=== PATIENT | female | born 1980 | race Two or more races ===

== ENCOUNTER 2019-08-12 13:05 | Observation (INO) | payer MEDICAID ==
[2019-09-02] MEDS ORDERED: SUCR1TAB22 OR (11:14)
== END 2019-08-12 14:00 | disposition home or self-care (01) | DRG 566 ==
LOC: LDRP 13:05
PROVIDERS: ADMIT Obstetrics & Gynecology; ATTEND Obstetrics & Gynecology
DX: O36.8130 Decreased fetal movements, third trimester, not applicable or unspecified (principal); Z3A.30 30 weeks gestation of pregnancy
CPT/HCPCS: 59025; 81002; G0378

== ENCOUNTER 2019-08-19 10:18 | Observation (INO) | payer MEDICAID ==
[2019-08-19] MEDS ORDERED: FOLI1TAB6 PO (11:09)
[2019-08-19] MEDS ORDERED: PREN-96 PO (11:09)
== END 2019-08-19 11:36 | disposition home or self-care (01) | DRG 566 ==
LOC: LDRP 10:18
PROVIDERS: ADMIT Specialist; ATTEND Specialist
DX: O41.03X0 Oligohydramnios, third trimester, not applicable or unspecified (principal); Z3A.31 31 weeks gestation of pregnancy
CPT/HCPCS: 76818; 81002; G0378

== ENCOUNTER 2019-08-26 11:25 | Observation (INO) | payer MEDICAID ==
[~2019-08-26 11:25] MED LIST: FOLI1TAB6 PO; PREN-96 PO
== END 2019-08-26 13:25 | disposition home or self-care (01) | DRG 566 ==
LOC: LDRP 11:25
PROVIDERS: ADMIT Specialist; ATTEND Specialist
DX: O41.03X0 Oligohydramnios, third trimester, not applicable or unspecified (principal); O42.913 Preterm premature rupture of membranes, unspecified as to length of time between rupture and onset of labor, third trimester; Z3A.32 32 weeks gestation of pregnancy
CPT/HCPCS: 59025; 76815; 81002; G0378

== ENCOUNTER 2019-09-02 10:11 | Observation (INO) | payer MEDICAID ==
[2019-09-02] MEDS ORDERED: SUCR1TAB38 OR (11:14)
== END 2019-09-02 11:48 | disposition home or self-care (01) | DRG 566 ==
LOC: LDRP 10:11
PROVIDERS: ADMIT Obstetrics & Gynecology; ATTEND Obstetrics & Gynecology
DX: O42.913 Preterm premature rupture of membranes, unspecified as to length of time between rupture and onset of labor, third trimester (principal); Z3A.33 33 weeks gestation of pregnancy
CPT/HCPCS: 59025; 76818; 81002; G0378

== ENCOUNTER 2019-09-08 10:15 | Observation (INO) | payer MEDICAID ==
[~2019-09-08 10:15] MED LIST changes: +SUCR1TAB38 OR
== END 2019-09-08 12:40 | disposition home or self-care (01) | DRG 566 ==
LOC: LDRP 10:15
PROVIDERS: ADMIT Specialist; ATTEND Specialist
DX: O41.03X0 Oligohydramnios, third trimester, not applicable or unspecified (principal); O62.9 Abnormality of forces of labor, unspecified; Z3A.34 34 weeks gestation of pregnancy
CPT/HCPCS: 59025; 76818; 81002; G0378

== ENCOUNTER 2019-09-15 10:28 | Observation (INO) | payer MEDICAID | END 2019-09-15 11:25 | disposition home or self-care (01) | DRG 566 | LOC: LDRP 10:28 | PROVIDERS: ADMIT Specialist; ATTEND Specialist | DX: O42.913 Preterm premature rupture of membranes, unspecified as to length of time between rupture and onset of labor, third trimester (principal); O62.9 Abnormality of forces of labor, unspecified; Z3A.35 35 weeks gestation of pregnancy | CPT/HCPCS: 59025; 76818; 81002; G0378 ==

== ENCOUNTER 2019-09-23 09:47 | Observation (INO) | payer MEDICAID | END 2019-09-23 10:46 | disposition home or self-care (01) | DRG 861 | LOC: LDRP 09:47 | PROVIDERS: ADMIT Obstetrics & Gynecology; ATTEND Obstetrics & Gynecology | DX: Z34.83 Encounter for supervision of other normal pregnancy, third trimester (principal); Z3A.36 36 weeks gestation of pregnancy | CPT/HCPCS: 59025; 76818; 81002; G0378 ==

== ENCOUNTER 2019-09-28 13:50 | Observation (INO) | payer MEDICAID ==
[~2019-09-28] VITALS: Ht 170.2 cm; Wt 85.3 kg
[2019-09-28] MEDS ORDERED: LACTATED RINGER'S 1,000 ML IV ONE ×2 (16:00→18:00)
[2019-09-28] MEDS ORDERED: TERBUTALINE SULFATE 1 MG/ML 1ML VIAL SC SCH (18:00)
== END 2019-09-28 19:57 | disposition home or self-care (01) | DRG 566 ==
LOC: LDRP 13:50
PROVIDERS: ADMIT Specialist; ATTEND Specialist
DX: O99.89 Other specified diseases and conditions complicating pregnancy, childbirth and the puerperium (principal); H53.8 Other visual disturbances; O09.523 Supervision of elderly multigravida, third trimester; Z3A.36 36 weeks gestation of pregnancy
CPT/HCPCS: 59025; 76818; 81002; 96372; G0378; J3105; 96365; 96366

== ENCOUNTER 2019-09-30 09:28 | Observation (INO) | payer MEDICAID | END 2019-09-30 11:08 | disposition home or self-care (01) | DRG 566 | LOC: LDRP 09:28 | PROVIDERS: ADMIT Specialist; ATTEND Specialist | DX: O41.03X0 Oligohydramnios, third trimester, not applicable or unspecified (principal); O09.523 Supervision of elderly multigravida, third trimester; Z3A.37 37 weeks gestation of pregnancy | CPT/HCPCS: 59025; 76818; 81002; G0378 ==

== ENCOUNTER 2019-10-03 03:57 | Inpatient (IN) | payer MEDICAID ==
[~2019-10-03] VITALS: Ht 170.2 cm; Wt 85.7 kg
[2019-10-03] MEDS ORDERED: LACTATED RINGER'S 1,000 ML IV SCH (04:54)
[2019-10-03] MEDS ORDERED: LACT. RINGERS/OXYTOCIN 20UNITS 1,000 ML IV SCH (04:54)
[2019-10-03] MEDS ORDERED: PENICILLIN G POT 5MIL/D5 50ML 50 ML IV ONE ×2 (05:00→05:03)
[2019-10-03] MEDS ORDERED: PHISODERM TOP SOLN 240ML BTL TOP PRN (05:00)
[2019-10-03] MEDS ORDERED: WITCH HAZEL-GLYCERIN PAD TOP PRN (05:00)
[2019-10-03] MEDS ORDERED: METHYLERGONOVINE MALEATE 0.2 MG/ML AMP IM PRN (05:00)
[2019-10-03] MEDS ORDERED: LIDOCAINE 2%HCL (LOCAL ANESTH.) INJ 20ML MDV ID ONE (05:00)
[2019-10-03] MEDS ORDERED: DERMOPLAST 60ML BOTTLE TOP PRN (05:00)
[2019-10-03] MEDS: PENICILLIN G POTASSIUM 2,500,000 UNITS in D5W 5% 50 ML IV SCH ×2 (05:12→10:22)
[2019-10-03 05:49] LABS: Albumin 2.6 g/dL (3.4-5.0); BUN/Creatinine Ratio 14.5; Calcium 8.7 mg/dL (8.5-10.1); Potassium 3.7 mmol/L (3.5-5.1)
[2019-10-03 05:52] LABS: Bilirubin, Total 0.3 mg/dL (0.2-1.0); Total Protein 7.2 g/dL (6.4-8.2)
[2019-10-03 05:53] LABS: INR 0.92 (0.9-1.15); Partial Thromboplastin Time 28.4 sec (23.64-32.05)
[2019-10-03 06:11] LABS: Urine Amorphous Crystal FEW /hpf (None Seen); Urine Bacteria FEW /hpf (None Seen); Urine Blood 3+ /uL (Negative); Urine Hyaline Cast FEW /lpf (0 - 2); Urine Specific Gravity 1.007 (1.001-1.035); Urine WBC 89 /hpf (0 - 5); Urine WBC Clumps PRESENT /hpf (None Seen)
[2019-10-03 06:16] LABS: Amphetamine Screen, Urine NEGATIVE (NEGATIVE); Barbiturate Scree,Urine NEGATIVE (NEGATIVE); Benzodiazephine Screen, Urine NEGATIVE (NEGATIVE); Cannabinoid Screen, Urine NEGATIVE (NEGATIVE); Cocaine Screen, Urine NEGATIVE (NEGATIVE); Opiate Scree,Urine NEGATIVE (NEGATIVE); Phencyclidine Screen, Urine NEGATIVE (NEGATIVE)
[2019-10-03 06:27] LABS: Basophils # (auto) 0.1 10 ^3/uL (0-0.2); Basophils % (auto) 0.6 % (0.0-2.0); Eosinophils # (auto) 0 10 ^3/uL (0-0.8); Eosinophils % (auto) 0.4 % (0.0-7.0); Hematocrit 39.4 % (36.0-46.0); Hemoglobin 13.5 g/dL (12.2-16.2); Mean Corpuscular Hemoglobin 30.2 pg (28.0-32.0); Mean Corpuscular Hgb Conc. 34.1 g/dL (32.0-36.0); Mean Corpuscular Volume 88.4 fL (80.0-100.0); Monocytes # (auto) 0.7 10 ^3/uL (0-1.3); Monocytes % (auto) 6.8 % (0.0-12.0); Neutrophils # (auto) 7.2 10 ^3/uL (1.6-8.6); Neutrophils % (auto) 72.2 % (37.0-80.0); Platelet Count (auto) 135 10^3/uL (140-450); Red Blood Cells 4.46 10^6/uL (4.0-5.20); Red Cell Distribution Width 13.5 % (11.8-14.3); White Blood Cell 9.9 10^3/uL (4.4-10.8)
[2019-10-03 06:32] LABS: Alcohol, Urine < 3.0 mg/dL (0-10)
--- NOTE | 2019-10-03 13:00 | NUR ---
Teaching: Reviewed information in [employer] booklet with patient. Discussed benefits of and risks associated with not . Discussed different positions, proper latch, feeding cues, and baby-led . Provided information of medication side effects related to . All questions and concerns addressed at this time. Patient verbalized understanding of information.
--- NOTE | 2019-10-03 14:45 | NUR ---
Ambulation: Patient OOB with standby assistance by RN. Patient ambulated to bathroom with steady gait. Patient able to void without difficulty. [facility] teaching provided with returned demonstration by patient. Clean gown provided and bed linen changed. Patient ambulated back to bed with steady gait and no distress noted.
[2019-10-03] MEDS: IBUPROFEN 600 MG TAB PO PRN ×2 (14:59→22:49)
[2019-10-03 15:30] VITALS: BP 112/61
[2019-10-03 19:30] VITALS: BP 108/57
[2019-10-03 23:00] VITALS: BP 94/59
--- NOTE | 2019-10-04 02:47 | NUR ---
IV removal IV DC'd with sterile technique, catheter fully intact. Pressure dressing applied to site. Patient tolerated procedure well.
[2019-10-04 02:48] VITALS: BP 109/61
[2019-10-04] MEDS: IBUPROFEN 600 MG TAB PO PRN (05:35)
[2019-10-04 07:26] VITALS: BP 110/63
[2019-10-04 11:00] VITALS: BP 105/67
--- NOTE | 2019-10-04 12:10 | NUR ---
Discharge: Patient taken to vehicle ambulating with all personal belongings, accompanied by staff and family member. No distress noted at time of departure, no adverse changes in status since initial assessment.
--- NOTE | 2019-10-04 14:31 | NUR ---
Discharge: Discharge instructions given as ordered. Pt encouraged to follow up with [facility] as instructed. All questions and concerns addressed. Patient verbalized understanding. Medication reconciliation completed and copy given to patient. All required/requested vaccines given and copies of vaccinations given to patient. Patient encouraged to prepare to depart unit.
[2019-10-04 15:00] VITALS: BP 115/64
== END 2019-10-04 15:25 | disposition home or self-care (01) | DRG 560 ==
LOC: LDRP 03:57 → OBSVTOIN 05:00 → LDRP 05:01
PROVIDERS: ADMIT Specialist; ATTEND Specialist
PROC: 10E0XZZ Delivery of Products of Conception, External Approach (ICD-10-PCS; principal; 2019-10-03)
DX: O80 Encounter for full-term uncomplicated delivery (principal); Z11.59 Encounter for screening for other viral diseases; Z37.0 Single live birth; Z3A.37 37 weeks gestation of pregnancy
CPT/HCPCS: 36415; 59025; 59409; 80053; 80307; 81001; 81002; 84112; 85025; 85610; 85730; 86592; 86850; 86900; 86901; 96360; 96361; G0378; J2540; J2590; J7060